=== PATIENT | female | born 1960 | race Caucasian/White ===

== ENCOUNTER → 2016-08-21 | Outpatient (CLI) | payer BC ==
[2016-08-12 09:11] VITALS: BP 149/80
== END ==
LOC: RAD 15:33
PROVIDERS: ATTEND Internal Medicine
DX: M54.2 Cervicalgia (principal); Z85.3 Personal history of malignant neoplasm of breast

== ENCOUNTER → 2016-08-27 | Outpatient (CLI) | payer BC ==
[2016-08-12 09:11] VITALS: BP 149/80
--- NOTE | 2016-08-27 14:23 | MRI ---
HISTORY: Cervicalgia Study: MRI cervical spine without contrast Comparison: CT cervical spine 08/12/2016 Technique: Multiplanar multisequence MRI of the cervical spine was obtained utilizing standard depar tmeal protocol. Findings: Alignment of the cervical spine is normal. No abnormal cord or marrow signal is identified. Verteb ral body heights are preserved without evidence of fracture. The prevertebral and paraspinal soft ti ssues are unremarkable. Multilevel disc space narrowing is present most prominent at C5-C6 with ass ociated spondylosis. C2 -- C3: No significant stenosis identified. C3 -- C4: No significant stenosis identified. C4 -- C5: No significant stenosis identified. C5 -- C6: Mild bilateral uncovertebral spurring and minimal disc osteophyte bulge without significan t mass effect. C6 -- C7: There is a large right paracentral /lateral recess disc protrusion with inferior extrusion and associated mass effect upon the adjacent nerve root. No central canal stenosis C7 -- T1: No significant stenosis identified. IMPRESSION: 1. Large right lateral recess disc protrusion at C6-C7 with inferior extrusion and associated mass e ffect upon the adjacent nerve root. 2. Discogenic degenerative changes at C5-C6 and mild bilateral uncovertebral spurring without signif icant stenosis. Reported By:
== END ==
LOC: RAD 12:39
PROVIDERS: ATTEND Internal Medicine
DX: M54.2 Cervicalgia (principal); Z85.3 Personal history of malignant neoplasm of breast; M50.823 Other cervical disc disorders at C6-C7 level
CPT/HCPCS: 72141

== ENCOUNTER → 2017-09-12 | Outpatient (CLI) | payer BC ==
[2016-08-12 09:11] VITALS: BP 149/80
--- NOTE | 2017-09-12 12:53 | VAS ---
Examination: Venous duplex Doppler Ultrasound of the lower extremities bilaterally. Clinical History: Bilateral leg pain and weakness. Technique: Duplex Doppler ultrasound utilizing joy scale imaging and spectral analysis with color/du plex imaging was used to evaluate the deep venous systems of both legs from the calves to the groins. Comparison: None available. Findings: There is normal flow, compressibility and augmentation of the common femoral-, femoral-, popliteal-, and posterior tibial veins bilaterally. The peroneal and anterior tibial veins were not demonstrated. There is no sonographic evidence of a deep venous thrombosis in either leg. Impression: 1. There is no sonographic evidence of a deep venous thrombosis in either leg. Reported By:
== END ==
LOC: RAD 12:03
PROVIDERS: ATTEND Internal Medicine
DX: R60.0 Localized edema (principal); M79.604 Pain in right leg; M79.605 Pain in left leg
CPT/HCPCS: 93970